=== PATIENT | female | born 1970 | race Two or more races ===

== ENCOUNTER 2020-06-14 21:40 | Emergency (ER) | payer MEDICAID ==
[~2020-06-14] VITALS: Ht 162.6 cm; Wt 73.0 kg
[2020-06-14 22:30] VITALS: BP 140/68
[2020-06-14] MEDS ORDERED: IBUPROFEN 600MG TABLET PO ONE (22:30)
== END 2020-06-14 22:37 | disposition home or self-care (01) ==
LOC: ER 21:40
DX: K05.6 Periodontal disease, unspecified (principal); K08.89 Other specified disorders of teeth and supporting structures; I10 Essential (primary) hypertension; Z90.710 Acquired absence of both cervix and uterus; Z88.0 Allergy status to penicillin
CPT/HCPCS: 99283

== ENCOUNTER 2021-07-14 19:32 | Emergency (ER) | payer MEDICAID, OTHER ==
[~2021-07-14] VITALS: Ht 162.6 cm; Wt 71.0 kg
[2021-07-14] MEDS ORDERED: HYDR-3782 MT (21:15)
[2021-07-14] MEDS ORDERED: OLOP2.5D12 EACHEYE (21:15)
[2021-07-14 21:50] VITALS: BP 133/89
== END 2021-07-14 21:59 | disposition home or self-care (01) ==
LOC: ER 19:32
DX: H10.31 Unspecified acute conjunctivitis, right eye (principal); I10 Essential (primary) hypertension; Z88.0 Allergy status to penicillin
CPT/HCPCS: 99281; 99283

== ENCOUNTER 2023-03-14 21:11 | Emergency (ER) | payer MEDICAID, OTHER ==
[~2023-03-14] VITALS: Ht 160 cm; Wt 67.6 kg
[~2023-03-14 21:11] MED LIST: HYDR-3782 MT; OLOP2.5D12 EACHEYE
[2023-03-14 21:20] VITALS: BP 144/88; PULSE 102; RESP 18; TEMP 98.7; O2SAT 98
[2023-03-14 21:47] LABS: CLARITY URINE CLEAR (CLEAR); COLOR URINE YELLOW (YELLOW); GLUCOSE URINE NEGATIVE (NEGATIVE); KETONES URINE NEGATIVE (NEGATIVE); LEUKOCYTE ESTERASE URINE NEGATIVE (NEGATIVE); NITRITE URINE NEGATIVE (NEGATIVE); OCCULT BLOOD URINE 1+ (NEGATIVE); PH URINE 7.5 (4.5-8.0); PROTEIN URINE NEGATIVE (NEGATIVE); SPECIFIC GRAVITY URINE 1.006 (1.005-1.030); UROBILINOGEN URINE 0.2 E.U./dL (0.2-1.0)
[2023-03-14 21:49] LABS: HEMATOCRIT. 38.6 % (36.0-48.0); HEMOGLOBIN. 12.6 g/dL (12.0-16.0); MEAN CORPUSCULAR HEMOGLOBIN 29.2 pg (28.0-32.0); MEAN CORPUSCULAR HGB CONC 32.7 g/dL (31.0-37.0); MEAN CORPUSCULAR VOLUME 89.1 fL (81.0-99.0); MEAN PLATELET VOLUME 9.1 fl (7.4-10.4); PLATELET 358 x1000/uL (130-400); RED BLOOD CELL COUNT 4.33 mill/uL (4.2-5.4); RED CELL DISTRIBUTION WIDTH 13.1 % (11.6-14.6)
[2023-03-14 21:52] LABS: DIFFERENTIAL COMMENT 1
[2023-03-14 22:04] LABS: CHLORIDE 105 mEq/L (98-107); INDEX HEMOLYSI 1 (1-3); INDEX ICTERIC 1 (1-4); INDEX LIPEMIC 1 (1-3); POTASSIUM 3.2 mEq/L (3.5-5.1); SODIUM 138 mEq/L (136-145)
[2023-03-14 22:07] LABS: BACTERIA URINE TRACE; SQUAMOUS EPITHELIAL CELL URINE FEW /lpf (RARE/1+); WBC URINE 0-2 /hpf (0-2)
[2023-03-14 22:15] LABS: ALANINE AMINOTRANSFERASE 31 IU/L (13-61); ALBUMIN 3.6 g/dL (3.4-5.0); ASPARTATE AMINOTRANSFERASE 18 IU/L (15-37); BILIRUBIN TOTAL 0.4 mg/dL (0.1-1.0); CALCIUM 9.1 mg/dL (8.5-10.1); CARBON DIOXIDE 27 mEq/L (21-32); GLUCOSE 123 mg/dL (70-105); TROPONIN I HIGH SENSITIVITY 4 ng/L (<54); UREA NITROGEN BLOOD 10 mg/dL (7-21)
[2023-03-14 23:53] LABS: PLATELET ESTIMATE NORMAL
[2023-03-15] MEDS ORDERED: ALBU6.7H15 INH (05:38)
== END 2023-03-15 06:15 | disposition home or self-care (01) ==
LOC: ER 21:11
DX: J98.01 Acute bronchospasm (principal); I10 Essential (primary) hypertension; Z88.0 Allergy status to penicillin
CPT/HCPCS: 36415; 71045; 80053; 81003; 81025; 84484; 85025; 93005; 99285